=== PATIENT | female | born 1985 | race Caucasian/White ===

== ENCOUNTER 2022-11-28 15:46 | Emergency (ER) | payer MEDICARE ==
[~2022-11-28] VITALS: Ht 177.8 cm; Wt 90.0 kg
[2022-11-28 15:53] VITALS: O2SAT 99
[2022-11-28] MEDS ORDERED: METHYLPREDNISOLONE SOD SUCC 125MG/2ML (ACT-O-VIAL) IV ONE (16:30)
[2022-11-28] MEDS ORDERED: SODIUM CHLORIDE 0.9% 1,000 ML IV SCH (16:30)
[2022-11-28] MEDS ORDERED: DIPHENHYDRAMINE 50MG/ML VIAL IV ONE (16:30)
[2022-11-28] MEDS ORDERED: METHYLPREDNISOLONE SOD SUCC 125MG VIAL IV NR (16:30)
[2022-11-28] MEDS ORDERED: FAMOTIDINE 20MG/2ML VIAL IV ONE (16:30)
[2022-11-28 17:57] LABS: BASOPHILS % 0.2 % (0.0-2.0); EOSINOPHILS % 0.9 % (0.0-5.0); HEMATOCRIT. 39.2 % (36.0-48.0); HEMOGLOBIN. 13.3 g/dL (12.0-16.0); MEAN CORPUSCULAR HEMOGLOBIN 28.7 pg (28.0-32.0); MEAN CORPUSCULAR VOLUME 84.4 fL (81.0-99.0); MEAN PLATELET VOLUME 7.8 fl (7.4-10.4); MONOCYTES % 8.5 % (2.0-8.0); NEUTROPHILS % 55.4 % (40.0-76.0); PLATELET 279 x1000/uL (130-400); RED BLOOD CELL COUNT 4.65 mill/uL (4.2-5.4); RED CELL DISTRIBUTION WIDTH 13.9 % (11.6-14.6)
[2022-11-28 17:59] LABS: CHLORIDE 108 mEq/L (98-107); HCG SCREEN NEGATIVE
[2022-11-28 19:59] VITALS: BP 126/58; PULSE 118; RESP 26; TEMP 98.6
[2022-11-28] MEDS ORDERED: P20 MT (20:34)
[2022-11-28] MEDS ORDERED: DIPH25CA83 PO (20:34)
[2022-11-28] MEDS ORDERED: EPIN0.3P3 IM (20:34)
== END 2022-11-28 21:17 | disposition home or self-care (01) ==
LOC: ER 15:46
DX: T78.40XA Allergy, unspecified, initial encounter (principal); I49.9 Cardiac arrhythmia, unspecified; E05.90 Thyrotoxicosis, unspecified without thyrotoxic crisis or storm; X58.XXXA Exposure to other specified factors, initial encounter
CPT/HCPCS: 80053; 84703; 84443; 85025; 36415; 93005; 96374; 96375; 99284; J1200; J3490; Z7610 ×5; J2930

== ENCOUNTER 2022-12-25 23:54 | Emergency (ER) | payer MEDICAID, MEDICARE ==
[~2022-12-25 23:54] MED LIST: DIPH25CA83 PO; EPIN0.3P3 IM; P20 MT
[2022-12-26 00:14] VITALS: PULSE 105
== END 2022-12-26 02:06 | disposition left against medical advice (07) ==
LOC: ER 23:54
DX: Z53.21 Procedure and treatment not carried out due to patient leaving prior to being seen by health care provider (principal)